=== PATIENT | female | born 1970 | race Caucasian/White ===

== ENCOUNTER → 2016-12-14 | Outpatient (CLI) | payer OTHER | LOC: MC.RAD 13:20 | DX: Z12.31 Encounter for screening mammogram for malignant neoplasm of breast (principal) ==

== ENCOUNTER → 2018-01-01 | Outpatient (CLI) | payer BC | LOC: MC.RAD 08:40 | DX: Z12.31 Encounter for screening mammogram for malignant neoplasm of breast (principal) ==

== ENCOUNTER 2018-07-23 13:01 | Day surgery (SDC) | payer BC ==
[2018-07-23] VITALS (9 sets, daily range): BP systolic 107–141; BP diastolic 66–84; PULSE 67–80; TEMP 97.6–97.8
[~2018-07-23] VITALS: Ht 167.6 cm; Wt 74.5 kg
--- NOTE | 2018-07-23 14:30 | NUR ---
Patient awaits surgery and and family in room.
[2018-07-23] MEDS ORDERED: MULTI VITAMINS1 TAB PO (14:35)
--- NOTE | 2018-07-23 17:30 | NUR ---
PATIENT ARRIVED TO ROOM 321-1 FROM THE PACU VIA BED. PATIENT SETTLED INTO ROOM. POST-OP VSS. PATIENT TOLERATING CLEAR LIQUIDS WITHOUT ANY COMPLAINTS OF N/V. 3-WAY PATHAK CATHETER TO DEPENDENT DRAINAGE WITH MODERATE AMOUNTS OF CLEAR PALE YELLOW URINE PRESENT IN PATHAK BAG. REPORT GIVEN TO ADITYA GARCIA.
--- NOTE | 2018-07-23 20:00 | NUR ---
Patient resting in bed at this time, family at bedside. Patient is alert and oriented, answers questions appropriately. CBI running at a moderate rate, urine is completely clear, rate turned down. Post op checks continue, VS WNL. Patient denies pain or needs at this time, call light within reach.
--- NOTE | 2018-07-23 23:00 | NUR ---
Patient calls to report her remote call light is not functioning, only those on the bed rails are working. Her television also does not work, the remote on the bed rail also does not control the television. Patient was moved to room 324-1 due to equipment malfunction; all equipment in new room is in working order. Patient denies further needs at this time, call light within reach.
[2018-07-24] VITALS: BP 105/68; PULSE 87; TEMP 98.8
[2018-07-24 04:00] VITALS: BP 108/66; PULSE 76; TEMP 98.5
--- NOTE | 2018-07-24 06:56 | NUR ---
Patient rested intermittently overnight. CBI continues per order at a slow rate, urine is clear and pale yellow. Patient c/o a headache early this morning, administered PRN tylenol. Patient has denied further needs, call light within reach.
[2018-07-24 08:00] VITALS: BP 116/68; PULSE 80; TEMP 97.8
--- NOTE | 2018-07-24 08:00 | NUR ---
PATIENT SITTING UP IN BED THIS AM. PATIENT IS A&O. VSS. BOWEL SOUNDS ACTIVE ALL FOUR QUADRANTS. PATIENT TOLERATING FOOD & LIQUIDS WITHOUT ANY COMPLAINTS OF N/V. POSITIVE PEDAL PULSES EQUAL BILATERALLY. SCD'S TO BLE. 3-WAY PATHAK CATHETER TO DEPENDENT DRAINAGE WITH MODERATE AMOUNTS OF CLEAR, PALE YELLOW URINE PRESENT IN PATHAK BAG. CBI INFUSING AT A SLOW RATE. IV FLUIDS INFUSING TO LEFT HAND IV VIA PUMP. FAMILY PRESENT AT THE BEDSIDE. BREAKFAST TRAY ORDERED. CALL LIGHT WITHIN REACH. PATIENT DENIES ANY OTHER NEEDS AT THIS TIME.
--- NOTE | 2018-07-24 10:43 | NUR ---
Initial visit; Patient thanked [facility] Nurse for looking in on her and offering God's blessings.
[2018-07-24 11:43] VITALS: BP 108/69; PULSE 80; TEMP 97.5
--- NOTE | 2018-07-24 13:35 | NUR ---
SW met with patient to discuss discharge planning. Patient lives in [place] with her Dick and is independent in all ADLs. Patients PCP is Dr Savage and she obtains her medications from [facility]. There are no anticipated discharge needs at this time.
--- NOTE | 2018-07-24 14:27 | NUR ---
Pt teaching done with pt and her about mitomycin administration, precautions, and process expected today. Questions invited. Consent for mitomycin administration signed and witnessed. Chemotherapy verified with Kamini Pearce RN by comparing printed label with order. CBI is off. Mitomycin instilled into bladder using PPE per protocal and precautions observed and reinforced with pt. Amaro catheter has been clamped prior to instillation. Chemotherapy precaution signage posted and chemotherapy cart and yellow disposal container outside room.
--- NOTE | 2018-07-24 17:01 | NUR ---
Pt ricketts catheter unclamped at 1620 and drained, CBI used to flush bladder. Urine remains clear, pale yellow/blue with no clots or indication of blood. Ricketts catheter was dc'd after 30ml balloon was emptied and pericare was provided with warm cloth. Chemotherapy precautions followed throughout procedure. Chemotherapy supplies and urine bagged and placed in chemowaste container. Pt up to bathroom to void immediately after dc of ricketts. Urine appears clear but voided in toilet so difficult to fully access. Precautions were reviewed again with pt and she verbalizes understanding. Report to Estefany, primary nurse. 250ml drained from catheter and 200 ml CBI used for flush/prime
--- NOTE | 2018-07-24 18:00 | NUR ---
PATIENT'S LEFT HAND INT DC'D PER PENDING DISCHARGE. PATIENT TOLERATED WELL. DISCHARGE INSTRUCTIONS REVIEWED WITH PATIENT AND . ALL QUESTIONS ANSWERED. PATIENT PERSONAL BELONGINGS GATHERED. PATIENT TAKEN TO PERSONAL VEHICLE VIA WHEELCHAIR BY SURGICAL STAFF. PATIENT DISCHARGED.
== END 2018-07-24 18:00 | disposition home or self-care (01) ==
LOC: SDCO 13:01 → SURG 17:30 → SDCO 07-24 18:00
DX: C67.9 Malignant neoplasm of bladder, unspecified (principal); Z80.42 Family history of malignant neoplasm of prostate; D41.4 Neoplasm of uncertain behavior of bladder
CPT/HCPCS: J0330; J0690; J1100; J2270; J2405; J2704; J3010; J7120; J9280; Q9967

== ENCOUNTER → 2019-01-02 | Outpatient (CLI) | payer BC ==
[~2019-01-02] MED LIST: MULTI VITAMINS1 TAB PO
== END ==
LOC: MC.RAD 14:00
DX: Z12.31 Encounter for screening mammogram for malignant neoplasm of breast (principal)

== ENCOUNTER 2019-04-17 07:08 | Day surgery (SDC) | payer BC ==
[~2019-04-17] VITALS: Ht 167.6 cm; Wt 76.7 kg
[2019-04-17 07:37] VITALS: BP 129/94; PULSE 77; TEMP 98
[2019-04-17 08:55] VITALS: BP 111/76; PULSE 83; TEMP 97.6
--- NOTE | 2019-04-17 08:55 | NUR ---
Pt returned via cart to [facility]. Pt drowsy. SBA to recliner in bay with steady gait. Warm blankets placed on pt. Pt requested a muffin and water. Denied complaints. VSS-see flowsheet. Call light in reach.
[2019-04-17 09:10] VITALS: BP 119/91; PULSE 65
[2019-04-17 09:25] VITALS: BP 114/84; PULSE 65
[2019-04-17 09:40] VITALS: BP 117/76; PULSE 60
--- NOTE | 2019-04-17 10:00 | NUR ---
Pt rested for some time and tolerated a muffin and water. VS remain stable. Denied complaints. IV removed, catheter tip intact and pressure dressing applied. Discharge teaching completed, verbalized understanding. Children and , Rusty present at time. After pt dressed, taken via wheelchair to private vehicle for dc home with Rusty driving.
== END 2019-04-17 10:00 | disposition home or self-care (01) ==
LOC: SDCO 07:08
DX: Z12.11 Encounter for screening for malignant neoplasm of colon (principal); K63.5 Polyp of colon; Z85.51 Personal history of malignant neoplasm of bladder; Z88.0 Allergy status to penicillin
CPT/HCPCS: J2250; J3010; J7030

== ENCOUNTER → 2020-03-09 | Outpatient (CLI) | payer BC | LOC: MC.RAD 08:45 | DX: Z12.31 Encounter for screening mammogram for malignant neoplasm of breast (principal) ==

== ENCOUNTER 2020-10-13 10:58 | Emergency (ER) | payer OTHER ==
[~2020-10-13] VITALS: Ht 167.6 cm; Wt 80.9 kg
[2020-10-13 11:10] VITALS: TEMP 98
[2020-10-13 12:46] VITALS: BP 134/79; PULSE 79
== END 2020-10-13 12:50 | disposition home or self-care (01) ==
LOC: COL.ER 10:58
DX: S20.219A Contusion of unspecified front wall of thorax, initial encounter (principal); Z88.2 Allergy status to sulfonamides; Z88.1 Allergy status to other antibiotic agents; Y04.8XXA Assault by other bodily force, initial encounter

== ENCOUNTER 2021-01-17 14:43 | Outpatient (RCR) | payer OTHER | END 2021-04-17 | disposition home or self-care (01) | LOC: WSOH | DX: M67.833 Other specified disorders of tendon, right wrist (principal); Z85.51 Personal history of malignant neoplasm of bladder; Y99.0 Civilian activity done for income or pay ==

== ENCOUNTER → 2021-04-17 | Outpatient (CLI) | payer BC | LOC: MC.RAD 15:00 | DX: Z12.31 Encounter for screening mammogram for malignant neoplasm of breast (principal) ==

== ENCOUNTER → 2023-08-01 | Outpatient (CLI) | payer BC | LOC: MC.RAD 15:24 | DX: Z12.31 Encounter for screening mammogram for malignant neoplasm of breast (principal) ==